=== PATIENT | female | born 1985 | race Caucasian/White ===

== ENCOUNTER → 2020-07-04 | Outpatient (CLI) | payer BC, OTHER | LOC: LAB 12:08 | PROVIDERS: ATTEND Surgery | DX: Z01.812 Encounter for preprocedural laboratory examination (principal); K80.10 Calculus of gallbladder with chronic cholecystitis without obstruction; Z20.822 Contact with and (suspected) exposure to COVID-19 | CPT/HCPCS: U0003 ==

== ENCOUNTER → 2020-07-07 | Day surgery (SDC) | payer BC ==
[~2020-07-07] VITALS: Ht 167.6 cm; Wt 160.0 kg
[~2020-07-07] MED LIST: ACETAMINOPHEN 500 MG TABLET PO ONE; BUPIVACAINE-EPI 0.25% 30 ML VIAL KIT. ONE; DEXAMETHASONE SOD PHOS 4 MG/ML VIAL ONE; FREM225S SQ; GLYCOPYRROLATE 1 MG/5 ML VIAL. ONE; HYDROmorphone 2 MG/ML VIAL IVP PRN; IOHEXOL 300 MG/ML 50 ML VIAL. ONE; IV RINGERS,LACTATED 1000ML 1,000 ML IV SCH; KETOROLAC 30 MG/ML VIAL. ONE; MORPHINE SULFATE 2 MG/ML VIAL. ONE; NEOSTIGMINE METHYLSULFATE 5 MG/5 ML SYRINGE. ONE; ONDANSETRON PF 4 MG/2 ML VIAL. ONE; OXYC-325 PO; PROCHLORPERAZINE 10 MG/2 ML VIAL. IVP PRN; PROCHLORPERAZINE 10 MG/2 ML VIAL. ONE; PROPOFOL 10 MG/ML (20ML) VIAL. IV ONE; ROCURONIUM 50 MG/5 ML VIAL. ONE; SEVOFLURANE 61 TO 120 MINUTES. IH ONE; SURGICEL HEMOSTAT 4X8 EACH. ONE; ceFAZolin SODIUM 3 GM in IV DEXTROSE 5% 100ML 100 ML IV PRN; fentaNYL PF VIAL 100 MCG/2 ML VIAL IVP PRN; fentaNYL PF VIAL 100 MCG/2 ML VIAL ONE; oxyCODONE/APAP 5/325 1 TAB TABLET PO ONE
--- NOTE | 2020-07-07 09:30 | PDOC1 ---
History and Physical Date of Admission Date of Admission DATE: 07/07/20 TIME: 09:27 Identification/Chief Complaint Chief Complaint Abdominal pain Source Source: Chart review, Patient History of Present Illness History of Present Illness 35-year-old female with complaints of right upper quadrant abdominal pain and postprandial nausea especially after eating fatty foods no vomiting. Ultrasound done May 2020 shows gallstones Past Medical History Cardiovascular: No pertinent hx Pulmonary: Asthma CENTRAL NERVOUS SYSTEM: Migraine GI: No pertinent hx Heme/Onc: No pertinent hx Hepatobiliary: No pertinent hx Psych: Depression Rheumatologic: Fibromyalgia Infectious disease: No pertinent hx ENT: No pertinent hx Renal/: No pertinent hx Endocrine: No pertinent hx Dermatology: No pertinent hx Past Surgical History Past Surgical History: Total knee replacement, Tubal Ligation, Hysterectomy, No pertinent history (Breast reduction) Family History Family History: No Significant Current Medications Current Medications Current Medications Cefazolin Sodium 3 gm/Dextrose 100 ml @ 200 mls/hr 1X PREOP PRN IV PRIOR TO PROCEDURE; Start 07/07/20 at 10:00; Stop 07/07/20 at 10:01 Acetaminophen (Tylenol) 1,000 mg ONCE ONCE PO Last administered on 07/07/20at 08:50; Start 07/07/20 at 06:00; Stop 07/07/20 at 06:01; Status DC Ringer's Solution 1,000 ml @ 100 mls/hr Q10H IV Last administered on 07/07/20at 08:54; Start 07/07/20 at 09:00 Rocuronium [place] (Zemuron) 50 mg STK-MED ONCE .ROUTE ; Start 07/07/20 at 09:15; Stop 07/07/20 at 09:16; Status DC Propofol (Diprivan) 200 mg STK-MED ONCE IV ; Start 07/07/20 at 09:16; Stop 07/07/20 at 09:16; Status DC Active Scripts Active Reported Ajovy (Fremanezumab-Vfrm) 225 Mg/1.5 Ml Syringe 225 Mg SQ QMONTH Allergies Allergies: Coded Allergies: No Known Drug Allergies (Unverified , 07/07/20) ROS Gastrointestinal: Yes Nausea, Yes Abdominal Pain Physical Exam General: Alert, Oriented X3, Cooperative, No acute distress HEENT: Atraumatic, EOMI Lungs: Clear to auscultation, Normal air movement Heart: RRR, no murmurs Abdomen: Normal bowel sounds, Soft, Other (Tender to palpation right upper quadrant) Rectal Exam: not examined Extremities: No edema Skin: No significant lesion Neuro: Normal speech Vitals Vitals Vital Signs Date Time Temp Pulse Resp B/P (MAP) Pulse Ox O2 Delivery O2 Flow Rate FiO2 07/07/20 08:49 97.3 80 20 136/80 98 Room Air 97.3 VTE Prophylaxis Ordered VTE Prophylaxis Devices: Yes VTE Pharmacological Prophylaxi: Contraindicated Assessment/Plan Assessment/Plan Chronic cholecystitis plan laparoscopic cholecystectomy Justifications for Admission Other Justification MARÍA LOPEZ MD Jul 07, 2020 09:30
--- NOTE | 2020-07-07 10:28 | PDOC4 ---
Operative Note Operative Note Date: July 072020 at 1026 Preoperative diagnosis chronic cholecystitis cholelithiasis Postoperative diagnosis: Same Procedure: Laparoscopic cholecystectomy Surgeon: Chaitanya Specimen: Gallbladder Dictation: Patient is 35-year-old female with right upper quadrant abdominal pain ultrasound showing gallstones. Procedure of laparoscopic cholecystectomy was explained to the patient in detail all risk benefits were also discussed including bleeding infection injury to intra-abdominal contents possible necessitating further open operations alternatives to this procedure also discussed with the patient who seemed to understand and gave a verbal written consent to have the procedure performed. Patient was taken to the operating room placed in the supine position general anesthesia was initiated once patient was sleeping intubated her abdomen was prepped and draped usual sterile fashion using ChloraPrep. An area just below the umbilicus was injected with quarter percent Marcaine with epinephrine incision was made 11 blade scalpel and a varies needle was placed within the abdomen creating pneumoperitoneum once this was complete the millimeter port was placed in a 5 mm camera was placed within the abdomen which was inspected no other ab maladies were noted. A 5 mm port was placed in the epigastrium a 5 mm port was placed in the right midabdomen and a 5 mm port was placed in the right lateral abdomen. The dome of the gallbladder is grasped retracted cephalad the infundibulum the gallbladder is grasped retracted laterally exposing the triangle adherent tissues the triangle were taken down exposing the cystic duct and cystic artery the cystic duct was doubly clipped on the and transected similarly the cystic artery was doubly clipped and transected the gallbladder is taken off the liver with hook electrocautery placed in Endo Catch bag removed from the umbilicus right upper quadrant is irrigated suctioned dry hemostasis deemed to be appropriate the pneumoperitoneum was reduced all ports were removed the fascial defect at the umbilicus was closed with a [id number] 0 Vicryl sutures. Skin was reapproximated all port sites for subcuticular Monocryl Mastisol Steri-Strips and island dressings were applied. Patient was awakened and extubated in the operating room taken to recovery in stable condition all sponge instrument needle counts listed as correct estimated blood loss 10 mL MARÍA LOPEZ MD Jul 07, 2020 10:28
--- NOTE | 2020-07-07 10:29 | DISCH ---
DISCHARGE INSTRUCTIONS Condition on Discharge Condition on Discharge: Stable Activity After Discharge Activity Instructions for Disc: Avoid exertion Other activity instructions: No lifting more than 20 pounds for 2 weeks Diet after Discharge Diet after Discharge: Low Fat Wound Incision Care Other wound/incision instructi: May shower in 24 hours Contacting the after DC Call your doctor for: If your condition worsens Follow-Up Follow up with: Dr. Lopez in 2 weeks MARÍA LOPEZ MD Jul 07, 2020 10:29
[2020-07-07] MEDS: fentaNYL PF VIAL 100 MCG/2 ML VIAL IVP PRN ×2 (10:50→10:58)
[2020-07-07] MEDS: MORPHINE SULFATE 2 MG/ML VIAL. IVP PRN ×2 (11:09→11:21)
[2020-07-07 11:45] VITALS: BP 151/81
--- NOTE | 2020-07-11 09:16 | PATHOLOGY ---
[facility] Accession Number: [id number] . 01 Material submitted: . gallbladder - GALLBLADDER . 01 Clinical history: . LAP NANI CHRONIC CHOLECYSTITIS . 02 Diagnosis: Gallbladder, laparoscopic cholecystectomy: - Cholelithiasis. - Chronic cholecystitis. - Reactive changes of gallbladder neck lymph node. (JPM:pit 07/10/2020) QTP 07/10/2020 1724 Local . 02 Electronically signed: . Davidson Carmona MD, Pathologist NPI- [id number] . 01 Gross description: . Fixative: Formalin Labeled: Gallbladder Specimen received: Intact gallbladder Dimensions: 9.3 x 4.2 x 2.1 cm Serosa: Hernandez-purple Lymph node: 1.0 x 0.8 x 0.6 Mucosa: Velvety, light hale Average wall thickness: Up to 0.2 cm Calculi: Present displaying a bright yellow, nodular appearance Abnormalities: None identified . Pipeline Inspector body, fundus, cystic duct margin, and bisected lymph node in A1. (CAA; 07/09/2020) QA/QA 07/09/2020 1334 Local . 02 Pathologist provided ICD-10: K80.10 . 02 CPT . 785605 Specimen Comment: A courtesy copy of this report has been sent to [phone] Specimen Comment: Report sent to Performed at: [facility] [address], [place] [id number] MD Jose Damico MD Phone: [phone] Performed at: [address] [facility] [address] [place], [place] [id number] MD Davidson Carmona MD Phone: [phone]
== END | disposition home or self-care (01) ==
LOC: SURG 08:36
PROVIDERS: ATTEND Surgery
DX: K80.10 Calculus of gallbladder with chronic cholecystitis without obstruction (principal); E66.9 Obesity, unspecified; F41.9 Anxiety disorder, unspecified; Z90.710 Acquired absence of both cervix and uterus; Z98.890 Other specified postprocedural states; Z72.89 Other problems related to lifestyle; Z79.899 Other long term (current) drug therapy
CPT/HCPCS: 47562; A4930; J0780; J1100; J1885; J2270; J2405; J2704; J2710; J3010; J3490; 88304; A4657; Q9967